=== PATIENT | male | born 1975 | race Two or more races ===

== ENCOUNTER 2023-07-26 16:45 | Inpatient (IN) | payer OTHER ==
[2023-07-26 18:05] VITALS: BMI 21.2
[2023-07-26] MEDS ORDERED: ACETAMINOPHEN 325 MG TABLET (FP) PO PRN (23:45)
[2023-07-26] MEDS ORDERED: MAG HYDROX/AL HYDROX/SIMETH 30 ML UNIT-DOSE CUP PO PRN (23:45)
[2023-07-26] MEDS ORDERED: P-EPHED 60MG/TRIPROLIDI 2.5MG TABLET PO PRN (23:45)
[2023-07-26] MEDS ORDERED: NALOXONE HCL 0.4 MG/ML VIAL IM PRN (23:45)
[2023-07-26] MEDS ORDERED: LOPERAMIDE HCL 2 MG CAPSULE PO PRN (23:45)
[2023-07-26] MEDS ORDERED: guaiFENesin 600 MG TABLET.ER (FP) PO PRN (23:45)
[2023-07-26] MEDS ORDERED: IBUPROFEN 400 MG TABLET (FP) PO PRN (23:45)
[2023-07-26] MEDS ORDERED: COLLOIDAL OATMEAL 1 BAR EACH TP PRN (23:45)
[2023-07-26] MEDS ORDERED: POLYETHYLENE GLYCOL (HEALTHYLAX) 3350 17 GM PACKET PO PRN (23:45)
[2023-07-26] MEDS ORDERED: IBUPROFEN 600 MG TABLET (FP) PO PRN (23:45)
[2023-07-26] MEDS ORDERED: NALOXONE HCL (KLOXXADO) 8 MG SPRAY NS PRN (23:45)
[2023-07-26] MEDS ORDERED: BENZOCAINE/MENTHOL (CHLORASEPTIC ) LOZENGE MM PRN (23:45)
[2023-07-26] MEDS ORDERED: MAGNESIUM HYDROX 2400MG/30ML ORAL SUSPENSION 30 ML CUP PO PRN (23:45)
[2023-07-26] MEDS ORDERED: BENZONATATE 200 MG CAPSULE PO PRN (23:45)
[2023-07-26] MEDS ORDERED: ONDANSETRON *ODT* 4 MG TABLET SL PRN (23:47)
[2023-07-27] MEDS ORDERED: MELATONIN 5 MG TABLETS ONE (00:22)
[2023-07-27] MEDS: MELATONIN 5 MG TABLETS PO SCH ×2 (00:33→21:34)
[2023-07-27] MEDS: BUPRENORPHINE/NALOXONE 8 MG/2 MG FILM PACKET SL SCH ×3 (00:34→21:34)
[2023-07-27 08:23] LABS: HEMATOCRIT 41.8 % (35.4-49); HEMOGLOBIN 13.9 GM/dL (11.7-16.9); MCH 29.6 pg (25.7-33.7); MCHC 33.2 g/dl (32.0-35.9); MEAN CELL VOLUME 89.1 fl (80-96); MEAN PLT VOLUME 7.2 fl (7.5-11.1); PLATELET COUNT 411 10^3/uL (134-434); RBC 4.69 M/mm3 (4.00-5.60); RDW 13.7 % (11.9-15.9); WHITE BLOOD COUNT 9.1 K/mm3 (4.0-10.0)
[2023-07-27 08:27] LABS: EPI CELLS 17 /uL (0-25.1); HYALINE CASTS 11 /uL (0-3.1); PH,URINE 5.5 (5.0-8.0); URINE APPEARANCE CLOUDY; URINE BACTERIA 3 /uL (0-1359); URINE BILIRUBIN NEGATIVE (NEGATIVE); URINE COLOR YELLOW; URINE GLUCOSE (UA) NEGATIVE (NEGATIVE); URINE KETONE 1+ (NEGATIVE); URINE LEUK ESTERASE NEGATIVE (NEGATIVE); URINE NITRITE NEGATIVE (NEGATIVE); URINE PROTEIN 1+ (NEGATIVE); URINE RBC 6 /uL (0-23.9); URINE UROBILINOGEN 0.2 mg/dL (0.2-1.0); URINE WBC 21 /uL (0-25.8)
[2023-07-27 08:29] LABS: POTASSIUM 4.2 mmol/L (3.5-5.1)
[2023-07-27 08:35] LABS: CALCIUM 10.4 mg/dL (8.5-10.1)
[2023-07-27 08:36] LABS: ALBUMIN 4.5 g/dl (3.4-5.0); BLOOD UREA NITROGEN 24.7 mg/dL (7-18)
[2023-07-27 08:39] LABS: CREATININE 1.3 mg/dL (0.55-1.3)
[2023-07-27 08:42] LABS: BILIRUBIN,TOTAL 0.6 mg/dL (0.2-1); TOT PROT 8.2 g/dl (6.4-8.2)
[2023-07-27] MEDS ORDERED: TUBERCULIN PPD 5 TU/0.1ML SYRINGE (IN PATIENT USE ONLY) ID ONE (09:00)
[2023-07-27] MEDS: PANTOPRAZOLE 20 MG TABLET PO SCH (09:04)
[2023-07-27] MEDS: PRENATAL VITAMINS W/ FOLIC ACID TABLET (FP) PO SCH (09:04)
[2023-07-27] MEDS: MAGNESIUM OXIDE 400 MG TABLET (FP) PO SCH ×2 (09:20→21:33)
[2023-07-27] MEDS: NICOTINE POLACRILEX 2 MG GUM BUC PRN ×2 (11:48→14:09)
[2023-07-27 11:59] LABS: SYPHILIS W/ RPR CONF NON-REACTIVE (NONREACTIVE)
[2023-07-27] MEDS: QUEtiapine FUMARATE 25 MG TABLET PO SCH (21:33)
[2023-07-27] MEDS: THIAMINE HCL 100 MG TABLET (FP) PO SCH (21:34)
[2023-07-27] MEDS ORDERED: QUEtiapine FUMARATE 50 MG TABLET PO SCH (22:00)
[2023-07-28] MEDS: NICOTINE POLACRILEX 2 MG GUM BUC PRN ×5 (06:09→20:36)
[2023-07-28] MEDS: BUPRENORPHINE/NALOXONE 8 MG/2 MG FILM PACKET SL SCH ×2 (09:37→21:03)
[2023-07-28] MEDS: PANTOPRAZOLE 20 MG TABLET PO SCH (09:37)
[2023-07-28] MEDS: MAGNESIUM OXIDE 400 MG TABLET (FP) PO SCH ×2 (09:37→21:02)
[2023-07-28] MEDS: PRENATAL VITAMINS W/ FOLIC ACID TABLET (FP) PO SCH (09:38)
[2023-07-28] MEDS: MELATONIN 5 MG TABLETS PO SCH (21:01)
[2023-07-28] MEDS: THIAMINE HCL 100 MG TABLET (FP) PO SCH (21:01)
[2023-07-28] MEDS: QUEtiapine FUMARATE 25 MG TABLET PO SCH (21:02)
[2023-07-29] MEDS: PANTOPRAZOLE 20 MG TABLET PO SCH (10:11)
[2023-07-29] MEDS: PRENATAL VITAMINS W/ FOLIC ACID TABLET (FP) PO SCH (10:11)
[2023-07-29] MEDS: BUPRENORPHINE/NALOXONE 8 MG/2 MG FILM PACKET SL SCH ×2 (10:11→21:27)
[2023-07-29] MEDS: MAGNESIUM OXIDE 400 MG TABLET (FP) PO SCH ×2 (10:11→21:26)
[2023-07-29] MEDS: NICOTINE POLACRILEX 2 MG GUM BUC PRN ×3 (10:12→16:29)
[2023-07-29] MEDS: THIAMINE HCL 100 MG TABLET (FP) PO SCH (21:26)
[2023-07-29] MEDS: QUEtiapine FUMARATE 25 MG TABLET PO SCH (21:26)
[2023-07-29] MEDS: MELATONIN 5 MG TABLETS PO SCH (21:26)
[2023-07-30] MEDS: MAGNESIUM OXIDE 400 MG TABLET (FP) PO SCH ×2 (09:54→21:01)
[2023-07-30] MEDS: PANTOPRAZOLE 20 MG TABLET PO SCH (09:54)
[2023-07-30] MEDS: BUPRENORPHINE/NALOXONE 8 MG/2 MG FILM PACKET SL SCH ×2 (09:54→21:02)
[2023-07-30] MEDS: PRENATAL VITAMINS W/ FOLIC ACID TABLET (FP) PO SCH (09:54)
[2023-07-30] MEDS: NICOTINE POLACRILEX 2 MG GUM BUC PRN ×2 (10:40→19:17)
[2023-07-30] MEDS: QUEtiapine FUMARATE 25 MG TABLET PO SCH (21:01)
[2023-07-30] MEDS: MELATONIN 5 MG TABLETS PO SCH (21:01)
[2023-07-30] MEDS: THIAMINE HCL 100 MG TABLET (FP) PO SCH (21:02)
[2023-07-31] MEDS: PANTOPRAZOLE 20 MG TABLET PO SCH (09:32)
[2023-07-31] MEDS: PRENATAL VITAMINS W/ FOLIC ACID TABLET (FP) PO SCH (09:32)
[2023-07-31] MEDS: BUPRENORPHINE/NALOXONE 8 MG/2 MG FILM PACKET SL SCH ×2 (09:32→21:33)
[2023-07-31] MEDS: MAGNESIUM OXIDE 400 MG TABLET (FP) PO SCH ×2 (09:32→21:32)
[2023-07-31] MEDS: NICOTINE POLACRILEX 2 MG GUM BUC PRN ×3 (15:26→21:34)
[2023-07-31] MEDS: MELATONIN 5 MG TABLETS PO SCH (21:32)
[2023-07-31] MEDS: THIAMINE HCL 100 MG TABLET (FP) PO SCH (21:32)
[2023-07-31] MEDS: QUEtiapine FUMARATE 50 MG TABLET PO SCH (21:33)
[2023-08-01] MEDS: hydrOXYzine PAMOATE 25 MG CAPSULE (FP) PO PRN (01:04)
[2023-08-01] MEDS: BUPRENORPHINE/NALOXONE 8 MG/2 MG FILM PACKET SL SCH ×2 (09:12→21:20)
[2023-08-01] MEDS: GABAPENTIN 100 MG CAPSULE PO SCH ×3 (09:13→21:20)
[2023-08-01] MEDS: MAGNESIUM OXIDE 400 MG TABLET (FP) PO SCH ×2 (09:13→21:20)
[2023-08-01] MEDS: PRENATAL VITAMINS W/ FOLIC ACID TABLET (FP) PO SCH (09:13)
[2023-08-01] MEDS: PANTOPRAZOLE 20 MG TABLET PO SCH (09:13)
[2023-08-01] MEDS: NICOTINE 14 MG/24 HOURS TOPICAL PATCH TD SCH (10:24)
[2023-08-01] MEDS ORDERED: BENZOCAINE 20 % GEL TUBE MM PRN (15:20)
[2023-08-01] MEDS: QUEtiapine FUMARATE 50 MG TABLET PO SCH (21:20)
[2023-08-01] MEDS: MELATONIN 5 MG TABLETS PO SCH (21:20)
[2023-08-01] MEDS: THIAMINE HCL 100 MG TABLET (FP) PO SCH (21:20)
[2023-08-01] MEDS: CLINDAMYCIN PHOSPHATE 1% TOPICAL GEL 30 GM TUBE TP SCH (21:21)
[2023-08-02] MEDS: GABAPENTIN 100 MG CAPSULE PO SCH ×3 (06:28→21:01)
[2023-08-02] MEDS: CLINDAMYCIN PHOSPHATE 1% TOPICAL GEL 30 GM TUBE TP SCH ×2 (09:36→21:03)
[2023-08-02] MEDS: MAGNESIUM OXIDE 400 MG TABLET (FP) PO SCH ×2 (09:37→21:01)
[2023-08-02] MEDS: NICOTINE 14 MG/24 HOURS TOPICAL PATCH TD SCH (09:37)
[2023-08-02] MEDS: PANTOPRAZOLE 20 MG TABLET PO SCH (09:37)
[2023-08-02] MEDS: PRENATAL VITAMINS W/ FOLIC ACID TABLET (FP) PO SCH (09:37)
[2023-08-02] MEDS: BUPRENORPHINE/NALOXONE 8 MG/2 MG FILM PACKET SL SCH ×2 (09:38→21:39)
[2023-08-02 15:04] LABS: HIV INTERPRETATION NEGATIVE (NEGATIVE)
[2023-08-02] MEDS: THIAMINE HCL 100 MG TABLET (FP) PO SCH (21:01)
[2023-08-02] MEDS: MELATONIN 5 MG TABLETS PO SCH (21:01)
[2023-08-02] MEDS: QUEtiapine FUMARATE 100 MG TABLET (FP) PO SCH (21:03)
[2023-08-03] MEDS: GABAPENTIN 100 MG CAPSULE PO SCH ×3 (05:55→21:26)
[2023-08-03] MEDS: MAGNESIUM OXIDE 400 MG TABLET (FP) PO SCH ×2 (10:25→21:25)
[2023-08-03] MEDS: PRENATAL VITAMINS W/ FOLIC ACID TABLET (FP) PO SCH (10:25)
[2023-08-03] MEDS: PANTOPRAZOLE 20 MG TABLET PO SCH (10:25)
[2023-08-03] MEDS: CLINDAMYCIN PHOSPHATE 1% TOPICAL GEL 30 GM TUBE TP SCH ×2 (10:27→21:26)
[2023-08-03] MEDS: BUPRENORPHINE/NALOXONE 8 MG/2 MG FILM PACKET SL SCH ×2 (10:27→21:42)
[2023-08-03] MEDS: NICOTINE 14 MG/24 HOURS TOPICAL PATCH TD SCH (10:27)
[2023-08-03] MEDS: NICOTINE POLACRILEX 4 MG GUM BUC PRN ×3 (12:41→18:05)
[2023-08-03] MEDS: QUEtiapine FUMARATE 100 MG TABLET (FP) PO SCH (21:25)
[2023-08-03] MEDS: MELATONIN 5 MG TABLETS PO SCH (21:25)
[2023-08-03] MEDS: THIAMINE HCL 100 MG TABLET (FP) PO SCH (21:25)
[2023-08-04] MEDS: GABAPENTIN 100 MG CAPSULE PO SCH ×3 (06:40→21:21)
[2023-08-04] MEDS: PRENATAL VITAMINS W/ FOLIC ACID TABLET (FP) PO SCH (09:38)
[2023-08-04] MEDS: NICOTINE 14 MG/24 HOURS TOPICAL PATCH TD SCH (09:38)
[2023-08-04] MEDS: PANTOPRAZOLE 20 MG TABLET PO SCH (09:38)
[2023-08-04] MEDS: CLINDAMYCIN PHOSPHATE 1% TOPICAL GEL 30 GM TUBE TP SCH ×2 (09:39→21:23)
[2023-08-04] MEDS: BUPRENORPHINE/NALOXONE 8 MG/2 MG FILM PACKET SL SCH ×2 (10:33→21:22)
[2023-08-04] MEDS: MAGNESIUM OXIDE 400 MG TABLET (FP) PO SCH ×2 (10:33→21:22)
[2023-08-04] MEDS: NICOTINE POLACRILEX 4 MG GUM BUC PRN ×2 (18:19→21:23)
[2023-08-04] MEDS: THIAMINE HCL 100 MG TABLET (FP) PO SCH (21:22)
[2023-08-04] MEDS: MELATONIN 5 MG TABLETS PO SCH (21:22)
[2023-08-04] MEDS: QUEtiapine FUMARATE 100 MG TABLET (FP) PO SCH (21:22)
[2023-08-05] MEDS: GABAPENTIN 100 MG CAPSULE PO SCH ×3 (06:11→21:40)
[2023-08-05] MEDS: NICOTINE POLACRILEX 4 MG GUM BUC PRN (06:12)
[2023-08-05] MEDS: PRENATAL VITAMINS W/ FOLIC ACID TABLET (FP) PO SCH (10:35)
[2023-08-05] MEDS: MAGNESIUM OXIDE 400 MG TABLET (FP) PO SCH ×2 (10:35→21:39)
[2023-08-05] MEDS: CLINDAMYCIN PHOSPHATE 1% TOPICAL GEL 30 GM TUBE TP SCH ×2 (10:35→21:39)
[2023-08-05] MEDS: NICOTINE 14 MG/24 HOURS TOPICAL PATCH TD SCH (10:35)
[2023-08-05] MEDS: PANTOPRAZOLE 20 MG TABLET PO SCH (10:35)
[2023-08-05] MEDS: BUPRENORPHINE/NALOXONE 8 MG/2 MG FILM PACKET SL SCH ×2 (10:36→21:40)
[2023-08-05] MEDS: hydrOXYzine PAMOATE 25 MG CAPSULE (FP) PO PRN (20:55)
[2023-08-05] MEDS: MELATONIN 5 MG TABLETS PO SCH (21:39)
[2023-08-05] MEDS: QUEtiapine FUMARATE 100 MG TABLET (FP) PO SCH (21:40)
[2023-08-05] MEDS: THIAMINE HCL 100 MG TABLET (FP) PO SCH (21:41)
[2023-08-06] MEDS: GABAPENTIN 100 MG CAPSULE PO SCH ×3 (06:42→21:16)
[2023-08-06] MEDS: NICOTINE 14 MG/24 HOURS TOPICAL PATCH TD SCH (09:35)
[2023-08-06] MEDS: PRENATAL VITAMINS W/ FOLIC ACID TABLET (FP) PO SCH (09:35)
[2023-08-06] MEDS: MAGNESIUM OXIDE 400 MG TABLET (FP) PO SCH ×2 (09:36→21:16)
[2023-08-06] MEDS: PANTOPRAZOLE 20 MG TABLET PO SCH (09:36)
[2023-08-06] MEDS: CLINDAMYCIN PHOSPHATE 1% TOPICAL GEL 30 GM TUBE TP SCH ×2 (09:36→21:16)
[2023-08-06] MEDS: BUPRENORPHINE/NALOXONE 8 MG/2 MG FILM PACKET SL SCH (09:36)
[2023-08-06] MEDS: NICOTINE POLACRILEX 4 MG GUM BUC PRN ×4 (09:38→19:43)
[2023-08-06] MEDS: MELATONIN 5 MG TABLETS PO SCH (21:16)
[2023-08-06] MEDS: QUEtiapine FUMARATE 100 MG TABLET (FP) PO SCH (21:16)
[2023-08-06] MEDS: THIAMINE HCL 100 MG TABLET (FP) PO SCH (21:16)
[2023-08-07] MEDS: GABAPENTIN 100 MG CAPSULE PO SCH ×3 (06:34→21:19)
[2023-08-07] MEDS: NICOTINE POLACRILEX 4 MG GUM BUC PRN ×4 (08:32→20:27)
[2023-08-07] MEDS: PANTOPRAZOLE 20 MG TABLET PO SCH (10:12)
[2023-08-07] MEDS: NICOTINE 14 MG/24 HOURS TOPICAL PATCH TD SCH (10:12)
[2023-08-07] MEDS: PRENATAL VITAMINS W/ FOLIC ACID TABLET (FP) PO SCH (10:12)
[2023-08-07] MEDS: MAGNESIUM OXIDE 400 MG TABLET (FP) PO SCH ×2 (10:12→21:19)
[2023-08-07] MEDS: CLINDAMYCIN PHOSPHATE 1% TOPICAL GEL 30 GM TUBE TP SCH ×2 (10:13→21:20)
[2023-08-07] MEDS: THIAMINE HCL 100 MG TABLET (FP) PO SCH (21:19)
[2023-08-07] MEDS: MELATONIN 5 MG TABLETS PO SCH (21:19)
[2023-08-07] MEDS: QUEtiapine FUMARATE 100 MG TABLET (FP) PO SCH (21:19)
[2023-08-08] MEDS: GABAPENTIN 100 MG CAPSULE PO SCH ×3 (06:28→21:07)
[2023-08-08] MEDS: hydrOXYzine PAMOATE 25 MG CAPSULE (FP) PO PRN (06:28)
[2023-08-08] MEDS: NICOTINE 14 MG/24 HOURS TOPICAL PATCH TD SCH (09:50)
[2023-08-08] MEDS: CLINDAMYCIN PHOSPHATE 1% TOPICAL GEL 30 GM TUBE TP SCH ×2 (09:50→21:08)
[2023-08-08] MEDS: MAGNESIUM OXIDE 400 MG TABLET (FP) PO SCH ×2 (09:50→21:07)
[2023-08-08] MEDS: PRENATAL VITAMINS W/ FOLIC ACID TABLET (FP) PO SCH (09:50)
[2023-08-08] MEDS: PANTOPRAZOLE 20 MG TABLET PO SCH (09:50)
[2023-08-08] MEDS: NICOTINE POLACRILEX 4 MG GUM BUC PRN ×2 (16:53→21:08)
[2023-08-08] MEDS: MELATONIN 5 MG TABLETS PO SCH (21:07)
[2023-08-08] MEDS: QUEtiapine FUMARATE 100 MG TABLET (FP) PO SCH (21:07)
[2023-08-08] MEDS: THIAMINE HCL 100 MG TABLET (FP) PO SCH (21:07)
[2023-08-09] MEDS: GABAPENTIN 100 MG CAPSULE PO SCH ×3 (06:20→21:20)
[2023-08-09] MEDS: NICOTINE POLACRILEX 4 MG GUM BUC PRN ×2 (09:03→19:52)
[2023-08-09] MEDS: CLINDAMYCIN PHOSPHATE 1% TOPICAL GEL 30 GM TUBE TP SCH ×2 (10:28→21:20)
[2023-08-09] MEDS: NICOTINE 14 MG/24 HOURS TOPICAL PATCH TD SCH (10:29)
[2023-08-09] MEDS: PANTOPRAZOLE 20 MG TABLET PO SCH (10:29)
[2023-08-09] MEDS: PRENATAL VITAMINS W/ FOLIC ACID TABLET (FP) PO SCH (10:29)
[2023-08-09] MEDS: MAGNESIUM OXIDE 400 MG TABLET (FP) PO SCH ×2 (11:43→21:19)
[2023-08-09] MEDS: MELATONIN 5 MG TABLETS PO SCH (21:19)
[2023-08-09] MEDS: QUEtiapine FUMARATE 100 MG TABLET (FP) PO SCH (21:19)
[2023-08-09] MEDS: THIAMINE HCL 100 MG TABLET (FP) PO SCH (21:19)
[2023-08-10 06:39] VITALS: BP 105/63; PULSE 61; RESP 18; TEMP 97.1
[2023-08-10] MEDS: GABAPENTIN 100 MG CAPSULE PO SCH ×2 (06:41→13:13)
[2023-08-10] MEDS: PANTOPRAZOLE 20 MG TABLET PO SCH (10:30)
[2023-08-10] MEDS: MAGNESIUM OXIDE 400 MG TABLET (FP) PO SCH (10:30)
[2023-08-10] MEDS: PRENATAL VITAMINS W/ FOLIC ACID TABLET (FP) PO SCH (10:30)
[2023-08-10] MEDS: NICOTINE 14 MG/24 HOURS TOPICAL PATCH TD SCH (10:30)
[2023-08-10] MEDS: NICOTINE POLACRILEX 4 MG GUM BUC PRN (10:31)
[2023-08-10] MEDS: CLINDAMYCIN PHOSPHATE 1% TOPICAL GEL 30 GM TUBE TP SCH (10:32)
== END 2023-08-10 12:38 | disposition other institution (70) | DRG 772 ==
LOC: YASAS 16:45 → Y3W 07-27 00:34
PROVIDERS: ADMIT Surgery; ATTEND Surgery
PROC: HZ42ZZZ Group Counseling for Substance Abuse Treatment, Cognitive-Behavioral (ICD-10-PCS; principal; 2023-07-27)
DX: F11.20 Opioid dependence, uncomplicated (principal); F14.20 Cocaine dependence, uncomplicated; F12.10 Cannabis abuse, uncomplicated; F17.210 Nicotine dependence, cigarettes, uncomplicated; F39 Unspecified mood [affective] disorder; F41.9 Anxiety disorder, unspecified; F43.10 Post-traumatic stress disorder, unspecified; F90.9 Attention-deficit hyperactivity disorder, unspecified type; K21.9 Gastro-esophageal reflux disease without esophagitis; B00.89 Other herpesviral infection; Z86.19 Personal history of other infectious and parasitic diseases; Z59.02 Unsheltered homelessness
CPT/HCPCS: 36415; 80053; 81003; 82962; 85027; 86632; 86695; 86696; 86780; 86803; 87389; 87635; 93005; 93010